=== PATIENT | female | born 1985 | race Caucasian/White ===

== ENCOUNTER 2017-04-24 05:10 | Inpatient (IN) | payer OTHER ==
[2017-04-24] MEDS: LACTATED RINGERS 1,000 ML IV SCH ×4 (05:53→21:31)
[2017-04-24] MEDS ORDERED: CITRIC ACID/SODIUM CITRATE SOL PO SCH (06:00)
[2017-04-24] MEDS ORDERED: MORPHINE SULFATE 0.5 MG/ML SOL ONE (08:04)
[2017-04-24] MEDS ORDERED: PHENYLEPHRINE HYDROCHLORIDE 10 MG/ML SOL ONE (08:05)
[2017-04-24] MEDS ORDERED: CEFAZOLIN SODIUM 1 GM PDS ONE (08:05)
[2017-04-24] MEDS ORDERED: ONDANSETRON HCL 4 MG/2 ML SOL ONE (08:05)
[2017-04-24] MEDS ORDERED: DEXAMETHASONE 20 MG/5 ML (4 MG/ML SOL) ONE (08:05)
[2017-04-24] MEDS ORDERED: OXYTOCIN 10000 MU/ML SOL ONE ×2 (08:18→09:30)
[2017-04-24] MEDS: KETOROLAC TROMETHAMINE 30 MG/ML SOL ONE ×2 (08:30→09:52)
[2017-04-24] MEDS ORDERED: LACTATED RINGERS 1,000 ML with OXYTOCIN 10000 MU/ML 20 MU IV ONE ×2 (08:40→09:32)
[2017-04-24 08:47] LABS: APPEARANCE,URINE Clear; BILIRUBIN,URINE NEGATIVE (NEGATIVE); COLOR,URINE Yellow; GLUCOSE, URINE (UA) NEGATIVE (NEGATIVE); KETONES,URINE 2+ (NEGATIVE); LEUKOCYTE ESTERASE ,URINE TRACE (NEGATIVE); NITRATE,URINE NEGATIVE (NEGATIVE); OCCULT BLOOD,URINE NEGATIVE (NEG-TRACE); UROBILINOGEN,URINE 0.2 (0.2-1.0 EU)
[2017-04-24 09:00] LABS: RBC,URINE NEGATIVE (0-3AV/HPF)
[2017-04-24] MEDS: CEFAZOLIN (PREMIX) 1 GM 1 GM/50 ML SOL IV SCH ×2 (11:10→14:30)
[2017-04-24] MEDS ORDERED: TEMAZEPAM 15MG 15 MG CAP PO PRN (11:11)
[2017-04-24] MEDS ORDERED: WITCH HAZEL 1 EA PAD TOP PRN (11:11)
[2017-04-24] MEDS ORDERED: BENZOCAINE/MENTHOL 1 SPR TOP PRN (11:11)
[2017-04-24] MEDS ORDERED: BISACODYL 10 MG SUP PR PRN (11:11)
[2017-04-24] MEDS ORDERED: METHYLERGONOVINE MALEATE 0.2 MG TAB PO PRN (11:11)
[2017-04-24] MEDS ORDERED: FLEET ENEMA PR PRN (11:11)
[2017-04-24] MEDS ORDERED: ACETAMINOPHEN 325 MG PO PRN (11:11)
[2017-04-24] MEDS ORDERED: ONDANSETRON HCL 4 MG/2 ML SOL IV PRN (11:11)
[2017-04-24] MEDS ORDERED: DIPHENHYDRAMINE 25 MG CAP PO PRN (11:11)
[2017-04-24] MEDS ORDERED: CEFAZOLIN (PREMIX) 1 GM 1 GM/50 ML SOL IV ONE (14:18)
[2017-04-24] MEDS: APAP/HYDROCODONE 325/5 TAB PO PRN (17:09)
[2017-04-24] MEDS: KETOROLAC TROMETHAMINE 30 MG/ML SOL IV PRN (19:53)
[2017-04-24] MEDS: SODIUM CHLORIDE 0.9% FLUSH 10 ML SOL IV SCH ×2 (19:53→21:52)
[2017-04-24] MEDS: DOCUSATE SODIUM 100 MG SGL PO SCH (20:05)
[2017-04-24] MEDS ORDERED: HYDROMORPHONE 1 MG/ML SYRINGE ONE (21:40)
[2017-04-24] MEDS ORDERED: HYDROMORPHONE 1 MG/ML SYRINGE IV ONE (22:00)
[2017-04-25] MEDS: APAP/HYDROCODONE 325/5 TAB PO PRN ×5 (02:58→22:37)
[2017-04-25] MEDS: KETOROLAC TROMETHAMINE 30 MG/ML SOL IV PRN ×2 (02:58→09:03)
[2017-04-25] MEDS: SODIUM CHLORIDE 0.9% FLUSH 10 ML SOL IV SCH ×2 (03:00→15:16)
[2017-04-25] MEDS ORDERED: LEVOTHYROXINE SODIUM 50 MCG TAB ONE (05:54)
[2017-04-25] MEDS: LEVOTHYROXINE SODIUM 50 MCG TAB PO SCH (06:40)
[2017-04-25] MEDS: MULTIVITAMIN2 1 EA TAB PO SCH (08:45)
[2017-04-25] MEDS: DOCUSATE SODIUM 100 MG SGL PO SCH ×2 (08:45→20:35)
[2017-04-25] MEDS: FOLIC ACID 1 MG TAB PO SCH (08:45)
[2017-04-25] MEDS: SIMETHICONE 40 MG/0.6 ML SUS PO PRN ×2 (10:57→18:53)
[2017-04-25] MEDS: IBUPROFEN 600 MG TAB PO PRN (19:43)
[2017-04-26] MEDS: SIMETHICONE 40 MG/0.6 ML SUS PO PRN (03:47)
[2017-04-26] MEDS: APAP/HYDROCODONE 325/5 TAB PO PRN ×4 (03:48→17:18)
[2017-04-26] MEDS ORDERED: LEVOTHYROXINE SODIUM 50 MCG TAB ONE (07:02)
[2017-04-26] MEDS: IBUPROFEN 600 MG TAB PO PRN ×2 (07:05→15:51)
[2017-04-26] MEDS: LEVOTHYROXINE SODIUM 50 MCG TAB PO SCH (07:06)
[2017-04-26] MEDS: DOCUSATE SODIUM 100 MG SGL PO SCH (09:38)
[2017-04-26] MEDS: FOLIC ACID 1 MG TAB PO SCH (09:38)
[2017-04-26] MEDS: MULTIVITAMIN2 1 EA TAB PO SCH (09:38)
[2017-04-26 17:15] VITALS: BP 111/68; PULSE 90; RESP 24; TEMP 98.8; O2SAT 95
== END 2017-04-26 19:45 | disposition home or self-care (01) | DRG 766 ==
LOC: OBSVTOIN 05:10 → OB 05:10
PROVIDERS: ADMIT Family Medicine; ATTEND Family Medicine
PROC: 10D00Z1 Extraction of Products of Conception, Low, Open Approach (ICD-10-PCS; principal; 2017-04-24 06:30)
DX: O34.219 Maternal care for unspecified type scar from previous cesarean delivery (principal); M25.511 Pain in right shoulder; Z3A.39 39 weeks gestation of pregnancy; Z37.0 Single live birth
CPT/HCPCS: 36415; 59025; 81001; 85018; 99070; J0690; J1100; J1885; J2274; J2405; J2590; J1170